=== PATIENT | female | born 1965 | race Caucasian/White ===

== ENCOUNTER 2019-03-16 07:48 | Emergency (ER) | payer OTHER ==
[~2019-03-16] VITALS: Ht 160 cm; Wt 82.6 kg
[~2019-03-16 07:48] MED LIST: DICY20TA PO; HYZAAR 100-251 UDTAB PO; METFORMIN HCL500 MG PO; MOTRIN IB200 MG PO; NEURIN SL; PREVACID30 MG PO; SYNTHROID50 MCG PO; SYNTHROID75 MCG PO; TORADOL60 MG IM; VOLTAREM 50 MG PO; VOLTAREM 75 MG PO
[2019-03-16] MEDS ORDERED: SYNTHROID100 MCG PO (08:09)
== END 2019-03-16 11:18 | disposition home or self-care (01) ==
LOC: ER 07:48
DX: M79.651 Pain in right thigh (principal)